=== PATIENT | male | born 1965 | race Caucasian/White ===

== ENCOUNTER 2023-02-15 12:58 | Inpatient (IN) | payer OTHER ==
[2023-02-15] MEDS ORDERED: ONDANSETRON 4 MG/2 ML VIAL ONE (13:39)
[2023-02-15] MEDS ORDERED: NA CHLORIDE 0.9% 1,000 ML ONE ×3 (13:39→17:06)
[2023-02-15] MEDS ORDERED: HYDROMORPHONE HCL 1 MG/ML INJ ONE ×2 (13:39→15:41)
[2023-02-15 13:41] LABS: Specific Gravity 1.026 (1.005-1.030); Urine Bacteria None Seen /HPF (<20); Urine Bilirubin NEGATIVE (Negative); Urine Blood Negative (Negative); Urine Clarity Clear (Clear); Urine Color Light-Yellow (Yellow); Urine Glucose 4+ (Over) (Negative); Urine Protein 1+ (Negative); Urine RBC <5 /HPF (None Seen); Urine Urobilinogen Normal (Normal); Urine pH 5.5 (5.0-7.0)
[2023-02-15 13:43] LABS: Absolute Lymphocytes (CBC) 0.6 K/uL (0.7-4.9); Hematocrit 42.4 % (39.6-49.0); Lymphocytes % 8.5 % (15.3-44.8); MCV 118.7 fL (80-100); MPV 8.4 fL (7.6-11.3); Platelets 184 thou/uL (152-406); RBC Red Blood Cell Count 3.57 M/uL (4.33-5.43)
[2023-02-15 14:12] LABS: Albumin 4.4 g/dL (3.4-5.0); Bilirubin Total 0.9 mg/dL (0.2-1.0); Protein, Total 8.3 g/dL (6.4-8.2)
--- NOTE | 2023-02-15 15:29 | RAD REPORT ---
EXAM DESCRIPTION: CT - Abdomen Pelvis W Contrast - 02/15/2023 2:55 pm CLINICAL HISTORY: ABD PAIN COMPARISON: No comparisons TECHNIQUE: Thin cut axial CT imaging of the abdomen and pelvis was performed following intravenous a dministration of 100 mL Isovue 300. Multiplanar reformats were generated and reviewed. All CT scans are performed using dose optimization technique as appropriate and may include automated exposure control or mA/KV adjustment according to patient size. FINDINGS: No suspicious findings in the lung bases. Triangular right posterior basal opacification w ith volume loss suggestive of atelectasis. Background hyperinflation suggesting COPD. The liver, spleen, and adrenal glands show no suspicious findings. Gallbladder and biliary tree are a lso without suspicious finding. Inflammatory fat stranding throughout the tissues of the pancreas and adjacent retroperitoneum, most pronounced along the head and proximal body. Minimal fluid tracks along the retroperitoneum and right paracolic gutter. No intra or peripancreatic fluid collections, or evidence of soft tissue gas or se gmental non enhancement. Small focus of heterogeneity along the anterior aspect of the body, less richard n 1 cm (see axial image 25/ ), could represent a small cyst, or a very early small intrapancreatic collection. Symmetric renal function is seen with no hydronephrosis or suspicious renal mass. No dilated bowel loops or bowel wall thickening. No free air, free fluid or inflammatory stranding. N o hernia, mass or bulky lymphadenopathy. The urinary bladder is suboptimally distended limiting evalu ation, without significant finding. No suspicious bony findings. IMPRESSION: Findings of acute interstitial edematous pancreatitis, without evidence of complications . Incidental findings as above. The findings were communicated to Dr. Garza on 02/15/2023 at 15:23 hours.
--- NOTE | 2023-02-15 15:36 | EDPHYS ---
Physician Documentation [facility] Name: Syed Hilario Age: 57 yrs Sex: Male : 1965 Arrival Date: 02/15/2023 Time: 12:58 Bed 17 Private MD: ED Physician Naveen Garza HPI: 02/15 13:19 This 57 yrs old Male presents to ER via EMS with complaints of Abdominal Pain. sp3 13:19 57-year-old male with a history of pancreatitis alcohol induced now presents again by sp3 EMS for recurrent epigastric pain secondary to "I overdid it last week and with the alcohol". He denies any vomiting, dark stools, back pain, chest pain, shortness of breath, fever, URI symptoms, syncope, decreased urine output, or any other signs or symptoms on ROS at this time. He states he has had pancreatitis 5 times before and he came in "a little early because he wanted to get ahead of it".. Historical: - Allergies: 13:39 PENICILLINS; db - Home Meds: 13:39 Advair Diskus Inhl [Active]; Albuterol Inhl [Active]; db - PMHx: 13:39 Chronic obstructive lung disease; Pancreatitis; db - Immunization history:: Client reports having NOT received the Covid vaccine. - Social history:: Smoking status: Patient reports the use of cigarette tobacco products, smokes one pack cigarettes per day. ROS: 13:21 Constitutional: Negative for fever, chills, and weight loss, Eyes: Negative for injury, sp3 pain, redness, and discharge, ENT: Negative for injury, pain, and discharge, Neck: Negative for injury, pain, and swelling, Cardiovascular: Negative for chest pain, palpitations, and edema, Respiratory: Negative for shortness of breath, cough, wheezing, and pleuritic chest pain, Back: Negative for injury and pain, MS/Extremity: Negative for injury and deformity, Skin: Negative for injury, rash, and discoloration, Neuro: Negative for headache, weakness, numbness, tingling, and seizure, Psych: Negative for depression, anxiety, suicide ideation, homicidal ideation, and hallucinations, Allergy/Immunology: Negative for hives, rash, and allergies, Endocrine: Negative for neck swelling, polydipsia, polyuria, polyphagia, and marked weight changes, 13:21 All other systems are negative, Exam: 13:21 Constitutional: This is a well developed, well nourished patient who is awake, alert, sp3 and in no acute distress. Head/Face: Normocephalic, atraumatic. ENT: Nares patent. No nasal discharge, no septal abnormalities noted. External auditory canals are clear. Oropharynx with no redness, swelling, or masses, exudates, or evidence of obstruction, uvula midline. Mucous membranes moist. Neck: Trachea midline, no thyromegaly or masses palpated, and no cervical lymphadenopathy. Supple, full range of motion without nuchal rigidity, or vertebral point tenderness. No Meningismus. Chest/axilla: Normal chest wall appearance and motion. Nontender with no deformity. No lesions are appreciated. Cardiovascular: Regular rate and rhythm with a normal S1 and S2. No gallops, murmurs, or rubs. Normal PMI, no JVD. No pulse deficits. Respiratory: Lungs have equal breath sounds bilaterally, clear to auscultation and percussion. No rales, rhonchi or wheezes noted. No increased work of breathing, no retractions or nasal flaring. Back: No spinal tenderness. No costovertebral tenderness. Full range of motion. Skin: Warm, dry with normal turgor. Normal color with no rashes, no lesions, and no evidence of cellulitis. MS/ Extremity: Pulses equal, no cyanosis. Neurovascular intact. Full, normal range of motion. Neuro: Awake and alert, GCS 15, oriented to person, place, time, and situation. Cranial nerves II-XII grossly intact. Motor strength 5/5 in all extremities. Sensory grossly intact. Cerebellar exam normal. Normal gait. Psych: Awake, alert, with orientation to person, place and time. Behavior, mood, and affect are within normal limits. 13:21 Abdomen/GI: Patient has mild epigastric pain to palpation without peritoneal signs, rebound or guarding. Patient is speaking in full sentences and laughing and joking with staff. No acute distress is noted., Vital Signs: 13:25 BP 140 / 123; Pulse 132; Resp 19; Temp 99(O); Pulse Ox 96% on R/A; Weight 68.04 kg; db Height 6 ft. 0 in. ; Pain 10/10; 13:35 BP 138 / 87; Pulse 127; Resp 20; db 14:32 BP 136 / 83; Pulse 118; Resp 18; Pulse Ox 99% on R/A; db 14:50 BP 153 / 97; Pulse 120; Resp 18; Pulse Ox 96% on R/A; db 15:00 BP 132 / 103; Pulse 107; Resp 18; Pulse Ox 99% on R/A; db 15:30 BP 128 / 92; Pulse 118; Resp 18; Pulse Ox 95% on R/A; db 16:30 BP 127 / 98; Pulse 112; Resp 18; Pulse Ox 94% on R/A; db 17:30 BP 140 / 85; Pulse 107; Resp 16; Pulse Ox 94% on R/A; db 18:30 BP 143 / 93; Pulse 98; Resp 16; Pulse Ox 94% on R/A; db 19:20 BP 138 / 88; Pulse 108; Resp 17; Pulse Ox 92% ; jj7 20:47 BP 143 / 77; Pulse 102; Resp 20; Pulse Ox 100% ; jj7 21:40 BP 136 / 83; Pulse 100; Resp 17; Pulse Ox 99% ; jj7 13:25 Body Mass Index 20.34 (68.04 kg, 182.88 cm) db 13:25 Pain Scale: Adult db MDM: 13:14 Patient medically screened. sp3 13:22 Data reviewed: vital signs, nurses notes, lab test result(s), radiologic studies. ED sp3 course: Patient likely has pancreatitis alcohol induced. Other differential include gastritis, enteritis, functional abdominal pain. I am not highly suspicious for acute coronary syndrome, pulmonary pathology, PE, TAD, sepsis, shock, any other critical illness at this time. We will administer normal saline, pain medication and assess with CT and labs. Antibiotics not currently indicated.. 15:31 ED course: Patient still tachycardic in the 120s. Will receive second liter of fluids sp3 and further pain medication and we will admit 23 at this time.. 02/15 13:15 Order name: CBC with Diff; Complete Time: 19:16 sp3 02/15 13:15 Order name: CMP; Complete Time: 15:14 sp3 02/15 13:15 Order name: Lipase; Complete Time: 15:14 sp3 02/15 13:15 Order name: Urinalysis w/ reflexes; Complete Time: 15:14 sp3 02/15 13:47 Order name: CBC Smear Scan; Complete Time: 19:16 EDMS 02/15 13:15 Order name: CT Abd/Pelvis - IV Contrast Only; Complete Time: 19:16 sp3 02/15 13:15 Order name: IV Saline Lock; Complete Time: 13:33 sp3 02/15 13:15 Order name: Labs collected and sent; Complete Time: 13:33 sp3 Administered Medications: 13:30 Drug: NS 0.9% IV 1000 ml IV at 1 bolus Per protocol; 1000 mL bolus Route: IV; Rate: 1 db bolus; Site: right wrist; 16:58 Follow up: Response: No adverse reaction; IV Status: Completed infusion; IV Intake: db 1000ml 13:30 Drug: Ondansetron IVP 4 mg IVP once; over 2 minutes Route: IVP; Site: right wrist; db 19:12 Follow up: Response: No adverse reaction db 13:30 Drug: HYDROmorphone IVP 1 mg IVP once Route: IVP; Site: right wrist; db 16:58 Follow up: Response: No adverse reaction; Pain is decreased db 15:33 Drug: NS 0.9% IV 1000 ml IV at 1 bolus Per protocol; 1000 mL bolus Route: IV; Rate: 1 db bolus; Site: right wrist; 16:59 Follow up: Response: No adverse reaction; IV Status: Completed infusion; IV Intake: db 1000ml 15:33 Drug: HYDROmorphone IVP 1 mg IVP once Route: IVP; Site: right wrist; db 16:58 Follow up: Response: No adverse reaction db 16:58 Drug: NS 0.9% IV 1000 ml IV at 125 ml/hr continuous Route: IV; Rate: 125 ml/hr; Site: db right wrist; 21:40 Follow up: IV Status: Infusion continued upon admission jj7 Disposition Summary: 02/15/23 15:35 Hospitalization Ordered Notes: Hospitalization Status: Observation sp3 Provider: Leticia Renner3 Location: Telemetry/MedSurg (observation) sp3 Condition: Stable sp3 Problem: an acute exacerbation sp3 Symptoms: have worsened sp3 Bed/Room Type: Standard sp3 Room Assignment: 207(02/15/23 20:50) kl Diagnosis - Pancreatitis, dehydration, alcoholism sp3 Forms: - Medication Reconciliation Form sp3 - SBAR form sp3 - Leadership Thank You Letter sp3 Signatures: Dispatcher [employer] Marcela Flores RN RN kl Patel, Setul, MD MD sp3 Caroline Rizo RN RN db Johnson, Juwairiyah RN jj7 Corrections: (The following items were deleted from the chart) 20:50 15:35 spNiru olmstead
--- NOTE | 2023-02-15 15:36 | ER ---
Nurse's Notes [facility] Name: Syed Hilario Age: 57 yrs Sex: Male : 1965 Arrival Date: 02/15/2023 Time: 12:58 Bed 17 Private MD: Diagnosis: Pancreatitis, dehydration, alcoholism Presentation: 02/15 13:13 Chief complaint: EMS states: pancreatitis flare up , stopped drinking a couple days iw ago. Coronavirus screen: At this time, the client does not indicate any symptoms associated with coronavirus-19. Ebola Screen: Patient negative for fever greater than or equal to 101.5 degrees Fahrenheit, and additional compatible Ebola Virus Disease symptoms Patient denies exposure to infectious person. Patient denies travel to an Ebola-affected area in the 21 days before illness onset. No symptoms or risks identified at this time. Risk Assessment: Do you want to hurt yourself or someone else? Patient reports no desire to harm self or others. 13:13 Method Of Arrival: EMS: [facility] iw 13:13 Acuity: DARYL 3 iw 13:25 Initial Sepsis Screen: Does the patient meet any 2 criteria? HR > 90 bpm. No. Patient's db initial sepsis screen is negative. Does the patient have a suspected source of infection? No. Patient's initial sepsis screen is negative. Onset of symptoms was February 12, 2023. Triage Assessment: 13:39 General: Appears in no apparent distress. comfortable, Behavior is calm, cooperative. db Pain: Complains of pain in abdomen. Neuro: Level of Consciousness is awake, alert, obeys commands, Oriented to person, place, time, situation, Speech is normal. Respiratory: Airway is patent Respiratory effort is even, unlabored, Respiratory pattern is regular, symmetrical. GI: Bowel sounds Reports lower abdominal pain. Historical: - Allergies: 13:39 PENICILLINS; db - Home Meds: 13:39 Advair Diskus Inhl [Active]; Albuterol Inhl [Active]; db - PMHx: 13:39 Chronic obstructive lung disease; Pancreatitis; db - Immunization history:: Client reports having NOT received the Covid vaccine. - Social history:: Smoking status: Patient reports the use of cigarette tobacco products, smokes one pack cigarettes per day. Screenin:24 [facility] ED Fall Risk Assessment (Adult) History of falling in the last 3 months, db including since admission No falls in past 3 months (0 pts) Confusion or Disorientation No (0 pts) Score/Fall Risk Level 0 - 2 = Low Risk Oriented to surroundings, Maintained a safe environment. Abuse screen: Denies threats or abuse. Denies injuries from another. Nutritional screening: No deficits noted. Tuberculosis screening: No symptoms or risk factors identified. Assessment: 14:55 Reassessment: PATIENT RETURNED FROM CT. db 15:23 Reassessment: PT STATES PAIN HAS RETURNED. db 15:42 Reassessment: Patient appears in no apparent distress at this time. Patient and/or db family updated on plan of care and expected duration. Pain level reassessed. Patient is alert, oriented x 3, equal unlabored respirations, skin warm/dry/pink. Neuro: Level of Consciousness is awake, alert, obeys commands, Oriented to person, place, time, situation. 16:30 Reassessment: Patient appears in no apparent distress at this time. Patient and/or db family updated on plan of care and expected duration. Pain level reassessed. Patient is alert, oriented x 3, equal unlabored respirations, skin warm/dry/pink. 17:30 Reassessment: Patient appears in no apparent distress at this time. Patient and/or db family updated on plan of care and expected duration. Pain level reassessed. Patient is alert, oriented x 3, equal unlabored respirations, skin warm/dry/pink. 18:30 Reassessment: Patient appears in no apparent distress at this time. Patient and/or db family updated on plan of care and expected duration. Pain level reassessed. Patient is alert, oriented x 3, equal unlabored respirations, skin warm/dry/pink. General: Appears in no apparent distress. comfortable, Behavior is calm, cooperative. 19:05 Reassessment: Patient appears in no apparent distress at this time. Patient and/or db family updated on plan of care and expected duration. Pain level reassessed. Patient is alert, oriented x 3, equal unlabored respirations, skin warm/dry/pink. REPORT GIVEN TO NELLIE PATINO. 19:20 Reassessment: ASSUME CARE OF PT. PT SITTING IN BED. NO DISTRESS NOTED. VS STABLE. PT jj7 REQUEST FOR SOME DILAUDID. DR GARZA INFORMED AND STATED PT CAN GET MEDS Q6H FROM LAST DOSE. CALL ANDREA IN REACH. NO ADDITIONAL NEEDS AT THIS. Vital Signs: 13:25 BP 140 / 123; Pulse 132; Resp 19; Temp 99(O); Pulse Ox 96% on R/A; Weight 68.04 kg; db Height 6 ft. 0 in. ; Pain 10/10; 13:35 BP 138 / 87; Pulse 127; Resp 20; db 14:32 BP 136 / 83; Pulse 118; Resp 18; Pulse Ox 99% on R/A; db 14:50 BP 153 / 97; Pulse 120; Resp 18; Pulse Ox 96% on R/A; db 15:00 BP 132 / 103; Pulse 107; Resp 18; Pulse Ox 99% on R/A; db 15:30 BP 128 / 92; Pulse 118; Resp 18; Pulse Ox 95% on R/A; db 16:30 BP 127 / 98; Pulse 112; Resp 18; Pulse Ox 94% on R/A; db 17:30 BP 140 / 85; Pulse 107; Resp 16; Pulse Ox 94% on R/A; db 18:30 BP 143 / 93; Pulse 98; Resp 16; Pulse Ox 94% on R/A; db 19:20 BP 138 / 88; Pulse 108; Resp 17; Pulse Ox 92% ; jj7 20:47 BP 143 / 77; Pulse 102; Resp 20; Pulse Ox 100% ; jj7 21:40 BP 136 / 83; Pulse 100; Resp 17; Pulse Ox 99% ; jj7 13:25 Body Mass Index 20.34 (68.04 kg, 182.88 cm) db 13:25 Pain Scale: Adult db ED Course: 13:13 Patient arrived in ED. iw 13:13 Triage completed. iw 13:14 Naveen Garza MD is Attending Physician. sp3 13:16 Caroline Rizo, RN is Primary Nurse. db 13:33 Inserted saline lock: 22 gauge in right wrist, using aseptic technique. Blood collected.em1 13:39 Arm band placed on Patient placed in an exam room. db 14:57 CT Abd/Pelvis - IV Contrast Only In Process Unspecified. EDMS 15:25 Patient has correct armband on for positive identification. Bed in low position. Call db light in reach. Side rails up X 1. Client placed on continuous cardiac and pulse oximetry monitoring. NIBP monitoring applied. 15:33 Leticia Renner MD is Hospitalizing Provider. sp3 17:40 initiated transfer to [facility] as requested by pt, pt denied due to hospital being bd on transfer closure,per alla. 19:13 Inserted saline lock: 20 gauge in right forearm, using aseptic technique. rv 21:40 No provider procedures requiring assistance completed. Patient admitted, IV remains in j7 place. 21:40 Provided Education on: HOSPITAL ENVIRONMENT. j Administered Medications: 13:30 Drug: NS 0.9% IV 1000 ml IV at 1 bolus Per protocol; 1000 mL bolus Route: IV; Rate: 1 db bolus; Site: right wrist; 16:58 Follow up: Response: No adverse reaction; IV Status: Completed infusion; IV Intake: db 1000ml 13:30 Drug: Ondansetron IVP 4 mg IVP once; over 2 minutes Route: IVP; Site: right wrist; db 19:12 Follow up: Response: No adverse reaction db 13:30 Drug: HYDROmorphone IVP 1 mg IVP once Route: IVP; Site: right wrist; db 16:58 Follow up: Response: No adverse reaction; Pain is decreased db 15:33 Drug: NS 0.9% IV 1000 ml IV at 1 bolus Per protocol; 1000 mL bolus Route: IV; Rate: 1 db bolus; Site: right wrist; 16:59 Follow up: Response: No adverse reaction; IV Status: Completed infusion; IV Intake: db 1000ml 15:33 Drug: HYDROmorphone IVP 1 mg IVP once Route: IVP; Site: right wrist; db 16:58 Follow up: Response: No adverse reaction db 16:58 Drug: NS 0.9% IV 1000 ml IV at 125 ml/hr continuous Route: IV; Rate: 125 ml/hr; Site: db right wrist; 21:40 Follow up: IV Status: Infusion continued upon admission [facility] Medication: 21:40 VIS not applicable for this client. j Intake: 16:58 IV: 1000ml; Total: 1000ml. db 16:59 IV: 1000ml; Total: 2000ml. db Outcome: 15:35 Decision to Hospitalize by Provider. sp3 21:40 Admitted to Med/surg accompanied by tech, via wheelchair, room 207, Report called to [facility] SUNNY BALLARD 21:40 Condition: good 21:49 Patient left the ED. j7 Signatures: Dispatcher [employer] EDMS Missy Mcfadden Irene, NELLIE RN Albaro Schwartz em1 Glenn Klein RN RN Naveen Monte MD MD sp3 Francisca Rodriguez RN RN jj7 Caroline Rizo RN RN db
[2023-02-15 16:11] LABS: Anisocytosis 2+; Blood Morphology Comment NOTED (NOT SEEN); Macrocytosis 2+; Platelet Estimate ADEQ; White Blood Cell Scan OK (OK)
--- NOTE | 2023-02-15 17:55 | P.HP ---
Certification for Inpatient Patient admitted to: Observation With expected LOS: <2 Midnights Practitioner: I am a practitioner with admitting privileges, knowledge of patient current condition, hospital course, and medical plan of care. Services: Services provided to patient in accordance with Admission requirements found in Title 42 Section 412.3 of the Code of Federal Regulations Patient History Date of Service: 02/15/23 Reason for admission: Abdominal pain History of Present Illness: 67-year-old gentleman with a history of chronic alcoholism, COPD, history of recurrent pancreatitis presented to the emergency department with complaint of abdominal pain of 3 days duration. Patient suspected he is experiencing an antibiotic of pancreatitis and therefore stopped eating for 3 days. He states that he drinks hard liquor daily and reports history of alcohol withdrawal symptoms when he does not drink alcohol. He denied any vomiting or diarrhea. He denied any shortness of breath. He denied any seizures. Blood work in the ED showed moderately elevated lipase. CT abdomen and pelvis shows findings consistent with acute interstitial edematous pancreatitis. He does not meet criteria for sepsis. No leukocytosis. Blood work shows hyponatremia. Patient is hospitalized for further management. - Past Medical/Surgical History -: Recurrent pancreatitis -: COPD - Family History Mother -: Diabetes - Social History Smoking Status: Current every day smoker (1 pack/day) Alcohol use: Yes Place of Residence: Home Review of Systems Other: Except as documented, all other systems reviewed and negative. Physical Examination - Physical Exam General: Alert, In no apparent distress, Oriented x3 HEENT: PERRLA, Mucous membr. moist/pink, Sclerae nonicteric Neck: Supple, JVD not distended Respiratory: Clear to auscultation bilaterally, Normal air movement Cardiovascular: No edema, Normal S1 S2, Other (Tachycardia) Capillary refill: <2 Seconds Gastrointestinal: Normal bowel sounds, Non-distended, Tenderness (Epigastrium) Musculoskeletal: No swelling, No tenderness Integumentary: No rashes, No cyanosis Neurological: Normal strength at 5/5 x4 extr, Cranial nerves 3-12 intact, Other (Hand tremors) Lymphatics: No axilla or inguinal lymphadenopathy - Studies Laboratory Data (last 24 hrs) 02/15/23 02/15/23 13:28 13:28 WBC 7.20 Hgb 14.9 Hct 42.4 Plt Count 184 Sodium 132 L Potassium 4.0 BUN 13 Creatinine 0.99 Glucose 213 H Total Bilirubin 0.9 AST 78 H ALT 33 Alkaline Phosphatase 196 H Lipase 406 H Assessment and Plan - Problems (Diagnosis) (1) Acute pancreatitis Current Visit: Yes Status: Acute (2) Alcohol abuse Current Visit: Yes Status: Acute (3) COPD (chronic obstructive pulmonary disease) Current Visit: Yes Status: Acute (4) Hyponatremia Current Visit: Yes Status: Acute (5) Elevated LFTs Current Visit: Yes Status: Acute - Plan Place patient under observation. Supportive measures with IV hydration-banana bag Clear liquid diet Monitor serial lipase daily Analgesics-IV morphine and oral Kimper as needed Patient already has hand tremors Start CIWA for alcohol withdrawal Monitor and optimize electrolytes. Elevated LFT likely secondary to chronic alcoholism-monitor LFT. Monitor BMP to follow hyponatremia. - Advance Directives Does patient have a Living Will: No Does patient have a Durable POA for Healthcare: No
[2023-02-15] MEDS ORDERED: FLUMAZENIL 0.1 MG/ML (5 mL VIAL) IV PRN (22:12)
[2023-02-15] MEDS ORDERED: ONDANSETRON 4 MG/2 ML VIAL IV PRN (22:12)
[2023-02-15] MEDS: LORazepam 2 MG/ML VIAL IV SCH (22:12)
[2023-02-15] MEDS ORDERED: HYDROCODONE/APAP 7.5/325 MG TAB PO PRN (22:12)
[2023-02-15] MEDS ORDERED: ALBUTEROL 2.5 MG/3 ML NEB SOL NEB PRN (22:12)
[2023-02-15 22:19] VITALS: BMI 19.1
[2023-02-15] MEDS: MORPHINE 2 MG/ML SYR IV PRN (22:57)
[2023-02-15 23:41] LABS: Protime INR 0.99
[2023-02-16] MEDS: LORazepam 2 MG/ML VIAL IV SCH ×6 (02:01→22:03)
[2023-02-16 03:12] LABS: Absolute Lymphocytes (CBC) 0.9 K/uL (0.7-4.9); MCV 117.8 fL (80-100); MPV 8.4 fL (7.6-11.3); Platelets 144 thou/uL (152-406); RBC Red Blood Cell Count 2.89 M/uL (4.33-5.43)
[2023-02-16] MEDS: MORPHINE 2 MG/ML SYR IV PRN ×4 (03:15→20:42)
[2023-02-16 04:01] LABS: Albumin 3.6 g/dL (3.4-5.0); Bilirubin Total 0.8 mg/dL (0.2-1.0); Magnesium 1.4 mg/dL (1.6-2.4); Phosphorus 1.6 mg/dL (2.5-4.9); Potassium 3.8 mEq/L (3.5-5.1); Protein, Total 6.4 g/dL (6.4-8.2)
[2023-02-16] MEDS ORDERED: THIAMINE 200 MG/2 ML INJ ONE (08:10)
[2023-02-16] MEDS ORDERED: NA CHLORIDE 0.9% 1,000 ML ONE (08:10)
[2023-02-16] MEDS: ENOXAPARIN 40 MG/0.4 ML SQ SCH (09:37)
[2023-02-16] MEDS: FOLIC ACID 1 MG, MULTIVITAMINS INJ 10 ML, THIAMINE HCL 100 MG in NA CHLORIDE 0.9% 1,000 ML IV SCH (09:42)
--- NOTE | 2023-02-16 13:25 | P.PN ---
Subjective Date of Service: 02/16/23 Chief Complaint: Abdominal pain Patient states his abdominal pain is much better today. He is tolerating clear liquid diet. Lipase level trended down from yesterday. He denies any diarrhea or nausea or vomiting. Physical Examination - Vital Signs Temperature: 98.1 F Blood Pressure: 135/77 Pulse: 103 Respirations: 15 Pulse Ox (%): 95 - Studies Laboratory Data (last 24 hrs) 02/16/23 02/16/23 02/15/23 02:11 02:11 23:05 WBC 5.30 Hgb 12.0 L D Hct 34.0 L Plt Count 144 L PT 10.9 INR 0.99 Sodium 136 D Potassium 3.8 BUN 11 Creatinine 0.53 L Glucose 102 Phosphorus 1.6 L Magnesium 1.4 L Total Bilirubin 0.8 AST 53 H ALT 25 Alkaline Phosphatase 139 H D Lipase 242 H 02/15/23 02/15/23 13:28 13:28 WBC 7.20 Hgb 14.9 Hct 42.4 Plt Count 184 PT INR Sodium 132 L Potassium 4.0 BUN 13 Creatinine 0.99 Glucose 213 H Phosphorus Magnesium Total Bilirubin 0.9 AST 78 H ALT 33 Alkaline Phosphatase 196 H Lipase 406 H Assessment And Plan - Current Problems (Diagnosis) (1) Acute pancreatitis Current Visit: Yes Status: Acute (2) Alcohol abuse Current Visit: Yes Status: Acute (3) COPD (chronic obstructive pulmonary disease) Current Visit: Yes Status: Acute (4) Hyponatremia Current Visit: Yes Status: Acute (5) Elevated LFTs Current Visit: Yes Status: Acute - Plan Physical Exam General: Alert, In no apparent distress, Oriented x3 HEENT: PERRLA, Mucous membr. moist/pink, Sclerae nonicteric Respiratory: Clear to auscultation bilaterally, Normal air movement Cardiovascular: No edema, Normal S1 S2, Tachycardia. Gastrointestinal: Normal bowel sounds, Non-distended, mild epigastric tenderness. Musculoskeletal: No swelling, No tenderness Integumentary: No rashes, No cyanosis Neurological: Normal strength at 5/5 x4 extr, Cranial nerves 3-12 intact, Hand tremors. Plan: Acute pancreatitis Lipase level is improving Patient is tolerating clear liquid diet Continue IV hydration. Continue clear liquid diet for now Monitor lipase Monitor and optimize electrolytes. Analgesics as needed. Alcohol abuse History of alcohol withdrawal. Continue CIWA. Banana bag. Hyponatremia Sodium level improved to normal Continue to monitor BMP. Elevated LFT Differential elevation in AST and ALP. Elevated LFTs likely alcohol related Monitor. DVT prophylaxis: Lovenox
[2023-02-16 21:43] VITALS: O2SAT 95
[2023-02-17] MEDS: MORPHINE 2 MG/ML SYR IV PRN ×4 (00:53→14:16)
[2023-02-17] MEDS: LORazepam 2 MG/ML VIAL IV SCH ×5 (02:35→18:28)
[2023-02-17 03:31] LABS: Hematocrit 33.4 % (39.6-49.0); Lymphocytes % 25.7 % (15.3-44.8); MPV 8.8 fL (7.6-11.3); Platelets 137 thou/uL (152-406); RBC Red Blood Cell Count 2.84 M/uL (4.33-5.43)
[2023-02-17 03:32] LABS: MCV 117.3 fL (80-100)
[2023-02-17 03:44] LABS: Albumin 3.4 g/dL (3.4-5.0); Bilirubin Total 0.9 mg/dL (0.2-1.0); Magnesium 1.5 mg/dL (1.6-2.4); Phosphorus 2.2 mg/dL (2.5-4.9); Potassium 3.5 mEq/L (3.5-5.1); Protein, Total 6.3 g/dL (6.4-8.2)
[2023-02-17] MEDS ORDERED: Magnesium Sulfate 2gm IVPB 2 G/50 ML BAG IV ONE (05:03)
[2023-02-17] MEDS: POTASS/SODIUM PHOSPHATE 1 PKT POWD.PACK PO SCH ×3 (05:26→10:05)
[2023-02-17] MEDS ORDERED: POTASSIUM 25 MEQ EFFERV TAB PO ONE (09:00)
[2023-02-17] MEDS: FOLIC ACID 1 MG, MULTIVITAMINS INJ 10 ML, THIAMINE HCL 100 MG in NA CHLORIDE 0.9% 1,000 ML IV SCH (10:04)
[2023-02-17] MEDS: ENOXAPARIN 40 MG/0.4 ML SQ SCH (10:05)
--- NOTE | 2023-02-17 17:26 | P.DS ---
Admission Date: 02/16/23 Discharge Date: 02/17/23 Disposition: ROUTINE DISCHARGE Discharge Condition: FAIR Reason for Admission: Abdominal pain - Problems (1) Acute pancreatitis Current Visit: Yes Status: Acute (2) Alcohol abuse Current Visit: Yes Status: Acute (3) COPD (chronic obstructive pulmonary disease) Current Visit: Yes Status: Acute (4) Hyponatremia Current Visit: Yes Status: Acute (5) Elevated LFTs Current Visit: Yes Status: Acute Brief History of Present Illness: 67-year-old gentleman with a history of chronic alcoholism, COPD, history of recurrent pancreatitis presented to the emergency department with complaint of abdominal pain of 3 days duration. Patient suspected he is experiencing an antibiotic of pancreatitis and therefore stopped eating for 3 days. He states that he drinks hard liquor daily and reports history of alcohol withdrawal symptoms when he does not drink alcohol. He denied any vomiting or diarrhea. He denied any shortness of breath. He denied any seizures. Blood work in the ED showed moderately elevated lipase. CT abdomen and pelvis shows findings consistent with acute interstitial edematous pancreatitis. He did not meet criteria for sepsis. No leukocytosis. Blood work showed hyponatremia. Patient was hospitalized for further management. Hospital Course: Patient admitted to the medical floor and the following medical problems addressed: Acute pancreatitis Lipase level trended down significantly and almost resolved. Patient treated with supportive measures including IV hydration and analgesics as needed He later tolerated liquid diet-no nausea or vomiting. Patient is ambulatory, tolerating diet and deemed stable for discharge. Alcohol abuse History of alcohol withdrawal. Patient was treated with Ativan per SANJUWA.. He is discharged with a few days of Ativan taper to complete alcohol detoxification. Patient has been advised to quit drinking alcohol. Hyponatremia Sodium level improved to normal with IV hydration. Elevated LFT Differential elevation in AST and ALP. Elevated LFTs likely alcohol related Stable. Vital Signs/Physical Exam: Temp Pulse Resp BP Pulse Ox 97.4 F 97 H 18 117/68 96 02/17/23 12:00 02/17/23 12:00 02/17/23 12:00 02/17/23 12:00 02/17/23 12:00 General: Alert, In no apparent distress, Oriented x3 HEENT: Mucous membr. moist/pink Neck: JVD not distended Respiratory: Clear to auscultation bilaterally, Normal air movement Cardiovascular: No edema, Regular rate/rhythm, Normal S1 S2 Gastrointestinal: Soft and benign, Non-distended, No tenderness Musculoskeletal: No swelling Integumentary: No rashes Neurological: Normal strength at 5/5 x4 extr Laboratory Data at Discharge: WBC 3.80 thou/uL (4.3-10.9) L 02/17/23 02:07 Hgb 11.8 g/dL (13.6-17.9) L 02/17/23 02:07 Hct 33.4 % (39.6-49.0) L 02/17/23 02:07 Plt Count 137 thou/uL (152-406) L 02/17/23 02:07 PT 10.9 SECONDS (9.5-12.5) 02/15/23 23:05 INR 0.99 02/15/23 23:05 Sodium 138 mEq/L (136-145) 02/17/23 02:07 Potassium 3.5 mEq/L (3.5-5.1) 02/17/23 02:07 BUN 4 mg/dL (7-18) L 02/17/23 02:07 Creatinine 0.46 mg/dL (0.70-1.30) L 02/17/23 02:07 Glucose 84 mg/dL (74-106) 02/17/23 02:07 Phosphorus 2.2 mg/dL (2.5-4.9) L 02/17/23 02:07 Magnesium 2.1 mg/dL (1.6-2.4) 02/17/23 14:00 Total Bilirubin 0.9 mg/dL (0.2-1.0) 02/17/23 02:07 AST 45 U/L (15-37) H 02/17/23 02:07 ALT 22 U/L (16-61) 02/17/23 02:07 Alkaline Phosphatase 133 U/L (45-117) H 02/17/23 02:07 Lipase 103 U/L (13-75) H 02/17/23 02:07 Home Medications: LORazepam [Ativan] 1 mg PO TID PRN #6 tab 02/17/23 New Medications: LORazepam [Ativan] 1 mg PO TID PRN #6 tab PRN Reason: Delirium Physician Discharge Instructions: Soft diet for 1 day and advance as tolerated. You are advised to quit drinking alcohol. You have been prescribed a few days of Ativan to help complete your alcohol detoxification. Please noticed it is detrimental to drink alcohol while taking the Ativan. You cannot take both. Activity: Fall precautions Followup: NONE,NONE [Primary Care Provider] - Time spent managing pt's care (in minutes): 36
[2023-02-17 18:39] VITALS: BP 120/79; TEMP 97
== END 2023-02-17 19:07 | disposition home or self-care (01) | DRG 439 ==
LOC: ER 12:58 → ERHOLD 17:06 → 2ND 21:12 → OBSVTOIN 02-16 10:55
PROVIDERS: ADMIT Internal Medicine; ATTEND Internal Medicine
DX: K85.20 Alcohol induced acute pancreatitis without necrosis or infection (principal); E87.1 Hypo-osmolality and hyponatremia; E86.0 Dehydration; F10.20 Alcohol dependence, uncomplicated; J44.9 Chronic obstructive pulmonary disease, unspecified; F17.210 Nicotine dependence, cigarettes, uncomplicated; R79.89 Other specified abnormal findings of blood chemistry; Z88.0 Allergy status to penicillin; Z88.8 Allergy status to other drugs, medicaments and biological substances; Z28.310 Unvaccinated for COVID-19; Z79.899 Other long term (current) drug therapy
CPT/HCPCS: 36415; 74177; 80053; 81001; 82947; 83690; 83735; 84100; 85025; 85610; 94760; 96361; 96374; 96375; 99285; G0378; J1170; J1650; J2270; J2405; J3411; J3475; J7030; Q9967